=== PATIENT | female | born 1975 | race Caucasian/White ===

== ENCOUNTER 2018-06-01 23:05 | Observation (INO) ==
--- NOTE | 2018-06-01 23:15 | Emergency Department Note ---
Disposition Clinical Impression: Altered mental status, Aphasia, Weakness Disposition: Admitted As Inpatient Condition: Fair Referrals: Cynthia Barnes, LIFT TEAM TECHNICIAN [Primary Care Provider] - Forms: ED Satisfaction Letter Neuro HPI - General Chief Complaint: ED Neuro Symptoms/Deficit Stated Complaint: numbness Time Seen by Provider: 06/01/18 23:08 Source: patient, EMS Mode of arrival: EMS Limitations: no limitations Nursing Notes Reviewed: Yes Vital Signs Reviewed: Yes - History of Present Illness HPI Narrative: Patient is a 42-year-old female with past medical history of hypertension, CHF. She presents today due to complaints of bilateral lower extremity numbness and inability to move legs. Also complains of left sided arm weakness and numbness. She is unsure when these symptoms started. EMS states that the symptoms started within the past few hours but were unable to give a more definite timeframe. Family is not with the patient. Patient denies any other chest pain, shortness of breath, nausea, vomiting, fevers, diarrhea, abdominal pain. Unknown blood thinners. No falls. - Related Data Home Medications: Home Medications Medication Instructions Recorded Confirmed Aspirin [Lo-Dose Aspirin EC] 81 mg PO DAILY 11/09/16 04/25/18 Metoprolol [Lopressor] 25 mg PO DAILY 11/09/16 04/25/18 Montelukast [Singulair] 10 mg PO DAILY 02/13/17 04/25/18 Gabapentin [Neurontin] 600 mg PO TID 04/30/17 04/25/18 ALPRAZolam [Xanax 0.25 MG Tablet] 0.25 mg PO QID 04/02/18 04/25/18 Cyclobenzaprine [Flexeril] 10 mg PO TID 04/02/18 04/25/18 Previous Rx's Medication Instructions Recorded Brompheniramine/Pseudoephed/Dm 5 ml PO Q4-6H PRN #120 syrup 04/02/18 [Bromfed Dm Cough Syrup] Famotidine [Pepcid] 20 mg PO BID #30 tablet 04/25/18 Omeprazole [PriLOSEC] 20 mg PO BIDAC #30 cap 04/25/18 Allergies/Adverse Reactions: Allergies Allergy/AdvReac Type Severity Reaction Status Date / Time ketorolac [From Toradol] Allergy Hives Verified 04/25/18 12:01 Penicillins Allergy Seizure Verified 04/25/18 12:01 naproxen AdvReac Hives Verified 04/25/18 12:01 All systems ED: reviewed and negative except as stated. Constitutional: Denies: fever Cardiovascular: Denies: chest pain, palpitations Respiratory: Denies: cough, dyspnea, wheezes Gastrointestinal: Denies: abdominal pain, nausea, vomiting, diarrhea Neurological: Reports: weakness, numbness. Denies: headache, paresthesias Past Medical History - Past Medical History Attestation: Yes The following information was validated with the patient. Source: patient Medical history: Reports: arthritis, asthma, CHF, hypertension, other Surgical history: Reports: , cholecystectomy, hysterectomy Psychiatric history: Reports: anxiety, depression IRRIGATION FLUME LAYER history: Reports: no IRRIGATION FLUME LAYER history - Social History Smoking Status: Current every day smoker Smokeless Tobacco Status: No Alcohol use: Reports: none Drug use: Reports: none Physical Exam - General Limitations: no limitations General appearance: alert, in no apparent distress - Head Head exam: atraumatic, normocephalic, normal inspection - Eye Eye exam: Present: normal appearance, PERRL, EOMI - ENT ENT exam: normal exam, normal oropharynx, mucous membranes moist - Neck Neck exam: Present: normal inspection, full ROM, trachea midline - Chest Chest inspection: Present: normal inspection, symmetric chest wall rise - Respiratory Respiratory exam: Present: normal lung sounds bilaterally - Cardiovascular Cardiovascular exam: Present: regular rate, normal rhythm, normal heart sounds - Abdominal Exam Abdominal exam: Present: soft, Non-Tender. Absent: tenderness, distention, guarding, rebound, rigidity - Extremities Exam Extremities exam: Present: normal inspection. Absent: tenderness, pedal edema - Neurological Exam Neurological exam: Present: alert, oriented X3, CN II-XII intact, other (see NIH for further detail) - Expanded Neurological Exam Patient oriented to: Present: person, place, time Cranial nerves: EOM function (II, III, IV, ): Normal, facial sensation (V): Normal, facial palsy (VII): Normal, spinal accessory function (XI): Normal, tongue deviation (XII): Normal Motor strength - LUE: 5/5 Motor strength - RUE: 5/5 Motor strength - LLE: 0/5 Motor strength - RLE: 0/5 Sensory exam upper extremity: light touch: Normal Sensory exam lower extremity: light touch: Abnormal Left, Abnormal Right Coma Scale Eye Opening: Spontaneous Coma Scale Motor Response: Obeys Commands Coma Scale Verbal Response: Oriented Coma Scale Total: 15 - Psychiatric Psychiatric exam: Present: normal affect, normal mood - Skin Skin exam: Present: warm, dry, intact, normal color Course Course Narrative: Stroke alert called. We will perform basic blood work, CT the head, chest x- ray. Please see NIH dissection for full details, NIH of 10 to the patient not moving bilateral lower extremities, decreased sensation of bilateral lower extremities and left upper extremity, mild slurring of speech. 23:27 Dr. Ratliff with [facility] on phone - Negative head CT 23:37 [facility] - neurologist on-call stated that since patient's symptoms do not follow focal distribution and head CT is negative, there is also no specific last known well, she did not recommend TPA at this time. She recommended obtaining CTA of the head and neck to assess for any proximal clot. If this is negative, recommended admission and further assessment with MRI/ further CVA workup. 01:36 CTA of the head and neck was negative for any acute arterial abnormality. Chest x-ray shows pulmonary vascular congestion. Troponin negative. EKG showed sinus rhythm with no acute ST changes. Patient reassessed. She is now moving all extremities appropriately, sensation is intact. She still has some mild slurring of words. NIH of 1. Head CT 06/01/18 23:12 IMPRESSION: No acute intracranial abnormality. Findings were discussed with Ang Appiah at 11:28 pm on 06/01/2018. D/ / Belem Singh Cha, MD / Belem Singh Cha, MD Interpreting Provider: Belem Singh Cha, MD Chest X-Ray 06/01/18 23:13 IMPRESSION: Suspected central pulmonary vascular congestion. D/ / Belem Singh Cha, MD / Belem Singh Cha, MD Interpreting Provider: Belem Singh Cha, MD Head CTA 06/02/18 23:36 IMPRESSION: CTA of the head and neck without acute arterial abnormality. Pulmonary apices demonstrate mixed attenuation suggestive of atelectasis or infection. Mildly prominent mediastinal lymph nodes, likely reactive in origin. D/ / Harshil Burnett / Harshil Burnett Interpreting Provider: Harshil Burnett Neck CTA 06/02/18 23:36 IMPRESSION: CTA of the head and neck without acute arterial abnormality. Pulmonary apices demonstrate mixed attenuation suggestive of atelectasis or infection. Mildly prominent mediastinal lymph nodes, likely reactive in origin. D/ / Harshil Burnett / Harshil Burnett Interpreting Provider: Harshil Burnett Vital Signs Temperature 98.0 F 06/01/18 23:10 Pulse Rate 95 06/01/18 23:10 Respiratory Rate 16 06/01/18 23:10 Blood Pressure 154/88 06/01/18 23:10 O2 Sat by Pulse Oximetry 93 06/01/18 23:10 Temperature 98.0 F 06/01/18 23:10 Pulse Rate 85 06/02/18 01:34 Respiratory Rate 16 06/02/18 01:34 Blood Pressure 142/80 06/02/18 01:34 O2 Sat by Pulse Oximetry 96 06/02/18 01:34 Oxygen Delivery Oxygen Delivery Room Air Neuro Symptoms/Deficit - MDM Narrative Medical decision making narrative: Stroke alert called. We will perform basic blood work, CT the head, chest x- ray. Please see NIH dissection for full details, NIH of 10 to the patient not moving bilateral lower extremities, decreased sensation of bilateral lower extremities and left upper extremity, mild slurring of speech. 23:27 Dr. Ratliff with [facility] on phone - Negative head CT 23:37 [facility] - neurologist on-call stated that since patient's symptoms do not follow focal distribution and head CT is negative, there is also no specific last known well, she did not recommend TPA at this time. She recommended obtaining CTA of the head and neck to assess for any proximal clot. If this is negative, recommended admission and further assessment with MRI/ further CVA workup. 01:36 CTA of the head and neck was negative for any acute arterial abnormality. Chest x-ray shows pulmonary vascular congestion. Troponin negative. EKG showed sinus rhythm with no acute ST changes. Patient reassessed. She is now moving all extremities appropriately, sensation is intact. She still has some mild slurring of words. NIH of 1. - Medical Records Medical records reviewed: Yes I reviewed the patient's medical records. - Lab Data Lab results reviewed: Yes I reviewed the patient's lab results. Result diagrams: 06/01/18 23:24 06/01/18 23:24 Lab Results 06/01/18 06/01/18 06/01/18 Range/Units 23:24 23:24 23:24 WBC 13.0 H (4.3-11.1) K/mcL RBC 4.98 H (3.82-4.97) M/mcL Hgb 15.4 (11.5-15.4) g/dL Hct 44.9 (35.3-44.9) % MCV 90.2 (83.0-100.0) fL MCH 30.9 (28.0-33.3) pg MCHC 34.3 (31.6-35.5) g/dL RDW 13.0 (11.5-14.5) % Plt Count 298 (140-400) K/mcL MPV 10.4 (9.4-12.4) fL Immature Gran % 0.3 (0-4) % Seg Neutrophils % 65.9 % Lymphocytes % 26.9 % Monocytes % 5.5 % Eosinophils % 1.1 % Basophils % 0.3 % Neutrophils # 8.5 (1.6-8.9) K/mcL Lymphocytes # 3.5 (0.6-4.6) K/mcL Monocytes # 0.7 (0.0-1.3) K/mcL Eosinophils # 0.1 (0.0-0.6) K/mcL Basophils # 0.0 (0.0-0.2) K/mcL PT 11.2 (9.4-12.1) Seconds INR 1.0 APTT 37.8 H (26.0-36.0) Seconds Sodium 136 (136-145) mEq/L Potassium 3.5 (3.5-5.1) mEq/L Chloride 113 H (98-107) mEq/L Carbon Dioxide 22 L (23-29) mEq/L BUN 9 (6-20) mg/dL Creatinine 0.67 (0.60-1.20) mg/dL Est GFR ( Amer) > 60 (> 60) Est GFR (Non-Af Amer) > 60 (> 60) BUN/Creatinine Ratio 13 (6-26) Glucose 107 H (70-105) mg/dL Calculated Osmolality 281 (280-300) Calcium 9.7 (8.6-10.3) mg/dL Troponin I < 0.03 (< 0.04) ng/mL - Radiology Data Radiology results reviewed: Yes I reviewed the patient's radiology results. - EKG Data EKG attestation: Yes I reviewed and interpreted this EKG. EKG results narrative: 06/01/2018 at 23:28. Normal sinus rhythm. Rate 90. MT 176. QRS 77. QTC 496. Normal axis. No acute ST elevation or depression. NIH Stroke Scale - Level of Consciousness LOC: Alert - LOC Questions LOC Questions: Answers both correctly - LOC Commands LOC Commands: Performs both correctly - Best Gaze Best Gaze: Normal - Visual Visual: No visual loss - Facial Palsy Facial Palsy: Normal - Motor Arms Motor Arm-Left: No drift for 10 seconds Motor Arm-Right: No drift for 10 seconds - Motor Legs Motor Leg-Left: No movement Motor Leg-Right: No movement - Limb Ataxia Limb Ataxia: Absent of affected limb too weak to perform exam - Sensory Sensory: Mild to moderate loss, "not as sharp" - Best Language Best Language: No aphasia - Dysarthria Dysarthria: Mild, slurs some words - Extinction and Inattention Extinction and Inattention: Normal - NIHSS Total Score NIHSS Total Score: 10 TPA Checklist - LKW: 3-4.5 hrs Add. Warnings/Precautions Patient/family understanding: The patient/family members have been counseled and understood the risk, benefit , and alternatives of treatment.
[2018-06-01 23:32] LABS: Basophils % 0.3 %; Eosinophils # 0.1 K/mcL (0.0-0.6); Eosinophils % 1.1 %; Hematocrit 44.9 % (35.3-44.9); Hemoglobin 15.4 g/dL (11.5-15.4); Immature Granulocytes % 0.3 % (0-4); Lymphocytes # 3.5 K/mcL (0.6-4.6); Lymphocytes % 26.9 %; Mean Corpuscular HGB Conc 34.3 g/dL (31.6-35.5); Mean Corpuscular Hemoglobin 30.9 pg (28.0-33.3); Mean Corpuscular Volume 90.2 fL (83.0-100.0); Mean Platelet Volume 10.4 fL (9.4-12.4); Monocytes # 0.7 K/mcL (0.0-1.3); Monocytes % 5.5 %; Neutrophils # 8.5 K/mcL (1.6-8.9); Platelet Count 298 K/mcL (140-400); Red Blood Count 4.98 M/mcL (3.82-4.97); Segmented Neutrophils % 65.9 %
[2018-06-01 23:36] LABS: Prothrombin Time 11.2 Seconds (9.4-12.1)
[2018-06-01] MEDS ORDERED: Isovue-370 500 ML INFUS..BTL IV ONE (23:36)
[2018-06-01 23:39] LABS: Activated Partial Thrombo Time 37.8 Seconds (26.0-36.0)
[2018-06-02 00:04] LABS: BUN/Creatinine Ratio 13 (6-26); Blood Urea Nitrogen 9 mg/dL (6-20); Calcium 9.7 mg/dL (8.6-10.3); Carbon Dioxide 22 mEq/L (23-29); Chloride 113 mEq/L (98-107); Glucose 107 mg/dL (70-105); Osmolality,Calculated 281 (280-300); Potassium 3.5 mEq/L (3.5-5.1); Sodium 136 mEq/L (136-145); eGFR For Non-African Americans > 60 (> 60)
[2018-06-02 00:06] LABS: Troponin I < 0.03 ng/mL (< 0.04)
--- NOTE | 2018-06-02 01:26 | Emergency Department Note ---
Disposition Clinical Impression: Altered mental status, Aphasia, Weakness Disposition: Admitted As Inpatient Condition: Fair Referrals: Cynthia Barnes, DAIRY PRODUCTS MAKER [Primary Care Provider] - Forms: ED Satisfaction Letter Neuro HPI - General Chief Complaint: ED Neuro Symptoms/Deficit Stated Complaint: numbness Time Seen by Provider: 06/01/18 23:08 Source: patient, EMS Mode of arrival: EMS Limitations: no limitations Nursing Notes Reviewed: Yes Vital Signs Reviewed: Yes - Related Data Home Medications: Home Medications Medication Instructions Recorded Confirmed Aspirin [Lo-Dose Aspirin EC] 81 mg PO DAILY 11/09/16 04/25/18 Metoprolol [Lopressor] 25 mg PO DAILY 11/09/16 04/25/18 Montelukast [Singulair] 10 mg PO DAILY 02/13/17 04/25/18 Gabapentin [Neurontin] 600 mg PO TID 04/30/17 04/25/18 ALPRAZolam [Xanax 0.25 MG Tablet] 0.25 mg PO QID 04/02/18 04/25/18 Cyclobenzaprine [Flexeril] 10 mg PO TID 04/02/18 04/25/18 Previous Rx's Medication Instructions Recorded Brompheniramine/Pseudoephed/Dm 5 ml PO Q4-6H PRN #120 syrup 04/02/18 [Bromfed Dm Cough Syrup] Famotidine [Pepcid] 20 mg PO BID #30 tablet 04/25/18 Omeprazole [PriLOSEC] 20 mg PO BIDAC #30 cap 04/25/18 Allergies/Adverse Reactions: Allergies Allergy/AdvReac Type Severity Reaction Status Date / Time ketorolac [From Toradol] Allergy Hives Verified 04/25/18 12:01 Penicillins Allergy Seizure Verified 04/25/18 12:01 naproxen AdvReac Hives Verified 04/25/18 12:01 Constitutional: Denies: fever Cardiovascular: Denies: chest pain, palpitations Respiratory: Denies: cough, dyspnea, wheezes Gastrointestinal: Denies: abdominal pain, nausea, vomiting, diarrhea Neurological: Reports: weakness, numbness. Denies: headache, paresthesias Past Medical History - Past Medical History Medical history: Reports: arthritis, asthma, CHF, hypertension, other Surgical history: Reports: , cholecystectomy, hysterectomy Psychiatric history: Reports: anxiety, depression RESEARCH DEVELOPMENT MANAGER history: Reports: no RESEARCH DEVELOPMENT MANAGER history - Social History Smoking Status: Current every day smoker Smokeless Tobacco Status: No Alcohol use: Reports: none Drug use: Reports: none Physical Exam - General Limitations: no limitations General appearance: alert, in no apparent distress Course Vital Signs Temperature 98.0 F 06/01/18 23:10 Pulse Rate 95 06/01/18 23:10 Respiratory Rate 16 06/01/18 23:10 Blood Pressure 154/88 06/01/18 23:10 O2 Sat by Pulse Oximetry 93 06/01/18 23:10 Temperature 98.0 F 06/01/18 23:10 Pulse Rate 87 06/02/18 00:15 Respiratory Rate 16 06/02/18 00:15 Blood Pressure 147/86 06/02/18 00:15 O2 Sat by Pulse Oximetry 97 06/02/18 00:15 Oxygen Delivery Oxygen Delivery Room Air Neuro Symptoms/Deficit - Lab Data Result diagrams: 06/01/18 23:24 06/01/18 23:24 Lab Results 06/01/18 06/01/18 06/01/18 Range/Units 23:24 23:24 23:24 WBC 13.0 H (4.3-11.1) K/mcL RBC 4.98 H (3.82-4.97) M/mcL Hgb 15.4 (11.5-15.4) g/dL Hct 44.9 (35.3-44.9) % MCV 90.2 (83.0-100.0) fL MCH 30.9 (28.0-33.3) pg MCHC 34.3 (31.6-35.5) g/dL RDW 13.0 (11.5-14.5) % Plt Count 298 (140-400) K/mcL MPV 10.4 (9.4-12.4) fL Immature Gran % 0.3 (0-4) % Seg Neutrophils % 65.9 % Lymphocytes % 26.9 % Monocytes % 5.5 % Eosinophils % 1.1 % Basophils % 0.3 % Neutrophils # 8.5 (1.6-8.9) K/mcL Lymphocytes # 3.5 (0.6-4.6) K/mcL Monocytes # 0.7 (0.0-1.3) K/mcL Eosinophils # 0.1 (0.0-0.6) K/mcL Basophils # 0.0 (0.0-0.2) K/mcL PT 11.2 (9.4-12.1) Seconds INR 1.0 APTT 37.8 H (26.0-36.0) Seconds Sodium 136 (136-145) mEq/L Potassium 3.5 (3.5-5.1) mEq/L Chloride 113 H (98-107) mEq/L Carbon Dioxide 22 L (23-29) mEq/L BUN 9 (6-20) mg/dL Creatinine 0.67 (0.60-1.20) mg/dL Est GFR ( Amer) > 60 (> 60) Est GFR (Non-Af Amer) > 60 (> 60) BUN/Creatinine Ratio 13 (6-26) Glucose 107 H (70-105) mg/dL Calculated Osmolality 281 (280-300) Calcium 9.7 (8.6-10.3) mg/dL Troponin I < 0.03 (< 0.04) ng/mL TPA Checklist - LKW: 3-4.5 hrs Add. Warnings/Precautions Patient/family understanding: The patient/family members have been counseled and understood the risk, benefit , and alternatives of treatment. Attestation Statement - Attestation Attestation: I, Quan Zamudio, examined this patient and my medical decision-making was reviewed with the ULTRASOUND TECHNICIAN/PA/Advanced Practice Nurse/Resident Physician. I agree with the documented findings, disposition and treatment plan as described except to the extent set forth below. 42-year-old female presents emergency Department with concerns of acute altered mental status. Patient is a poor historian and is unable to give a good history regarding the onset of her symptoms. On her initial evaluation she had slow speech but was not necessarily aphasic or dysarthric. Patient complained of weakness to the left upper extremity and bilateral lower extremities and initially refused to move the extremities however once it was raised she was able to keep her arm and legs elevated. CT did not show evidence of acute fracture or intracranial hemorrhage. Patient was unable to give us a time of last known well. Patient was not a candidate for TPA. She will be admitted to the hospitalist for further care and evaluation. Upon reevaluation she does state that she had "a very bad day" and states that she was driving when she had onset of her symptoms, pulled over to the side of the road to wait for help.
[2018-06-02] MEDS ORDERED: Aspirin 325 MG TABLET PO ONE (01:41)
[2018-06-02] MEDS ORDERED: Ondansetron 4 MG/2 ML VIAL IVP PRN (04:39)
[2018-06-02] MEDS ORDERED: Naloxone 0.4 MG/ML INJ IVP PRN (04:39)
[2018-06-02] MEDS ORDERED: Metoclopramide 10 MG/2 ML VIAL IVP PRN (04:41)
--- NOTE | 2018-06-02 04:58 | Internal Med History&Physical ---
Date of Encounter: 06/02/18 Time of Encounter: 04:52 Internal Medicine - H&P: HPI Chief complaint: weakness, confusion, numbness Admitted From: Emergency Dept Plans for Post Hospital Care: Home History of present illness: Ms. Parry is a 42 year old female with history of arthritis, asthma, CHF, hypertension, anxiety, depression, asthma who presents to emergency room with complaint of left arm/bilateral lower extremity weakness, numbness, tingling. She also states she has been confused. She is unable to remember her last known well but states that it was probably around 7 PM this evening. She states her symptoms were sudden onset however they are now relieved. She has never experienced this in the past. She does state she has a stressful couple days this might be contributing to her symptoms. She also states that she did not take her medications this morning including Xanax. She states she has also had a feeling a pinching her chest wall but this was not relieved as well. She denies any symptoms of fevers, chills, nausea, vomiting, change in bowel movements, shortness of breath. Currently during time of interview, she does not admit to any symptoms of weakness, numbness, tingling. Her only complaint at this time as a migraine headache. In the emergency department, stroke alert was called and she was stressed to urgent head CT which was negative for acute pathology. It was recommended that she also obtained a CT head and neck at that time and those results were also negative for acute infarct or stenotic lesion. Chest x-ray shows suspected pulmonary vascular congestion otherwise within normal limits. Vital signs on presentation significant for heart rate of 95, blood pressure 144/88 and she was saturating 93% on 2 L. Lab results significant for WBC of 13.0, potassium 3.5, otherwise within normal limits. Past medical history as above Past surgical history includes Social history includes current one pack per day smoker, denies drug use, denies alcohol abuse but does state she used to be a heavy drinker. Past Med Surg Social Fam HX - Past Medical History Medical history: arthritis, asthma, CHF, hypertension, other Additional medical history: Irregular Heartbeat Psychiatric history: anxiety, depression - Past Surgical History Surgical History: , cholecystectomy, hysterectomy - Social History Smoking Status: Current every day smoker Packs per day: 1 Smokeless Tobacco Status: No Alcohol use: none Drug use: none - Family History Mother Hx Family Cardiac Disorders: Yes (SC) Hx Family Respiratory Disorders: Yes (COPD) Hx Family Cancer: No Hx Family GI Disorders: No Hx Family Genitourinary Disorders: No Hx Family Endocrine Disorder: Yes (Thyroid, DM) Hx Family Musculoskeletal Disorders: No Hx Family Neuromuscular Disorders: No Hx Family Neurologic Disorders: No Hx Family HEENT Disorders: No Hx Family Autoimmune Disorders: No Hx Family Reproductive Disorders: No Hx Family Psychosocial Disorders: No Hx Family Medical Disorders: No Father Hx Family Cardiac Disorders: Yes (SC) Hx Family Respiratory Disorders: No Hx Family Cancer: Yes (Bone) Hx Family GI Disorders: No Hx Family Genitourinary Disorders: No Hx Family Endocrine Disorder: No Hx Family Musculoskeletal Disorders: No Hx Family Neuromuscular Disorders: No Hx Family Neurologic Disorders: No Hx Family HEENT Disorders: No Hx Family Autoimmune Disorders: No Hx Family Reproductive Disorders: No Hx Family Psychosocial Disorders: No Hx Family Medical Disorders: No Internal Medicine - H&P: Meds Aspirin [Lo-Dose Aspirin EC] 81 mg PO DAILY 11/09/16 [History] Metoprolol [Lopressor] 25 mg PO DAILY 11/09/16 [History] Montelukast [Singulair] 10 mg PO DAILY 02/13/17 [History] Gabapentin [Neurontin] 600 mg PO TID 04/30/17 [History] ALPRAZolam [Xanax 0.25 MG Tablet] 0.25 mg PO QID 04/02/18 [History] Cyclobenzaprine [Flexeril] 10 mg PO TID 04/02/18 [History] Famotidine [Pepcid] 20 mg PO BID #30 tablet 04/25/18 [Rx] Omeprazole [PriLOSEC] 20 mg PO BIDAC #30 cap 04/25/18 [Rx] 3 Allergy/AdvReac Type Severity Reaction Status Date / Time ketorolac [From Toradol] Allergy Hives Verified 04/25/18 12:01 Penicillins Allergy Seizure Verified 04/25/18 12:01 naproxen AdvReac Hives Verified 04/25/18 12:01 All Systems PM: A 10-system review of systems was performed and is negative for pertinent findings except as documented above in the HPI. - Constitutional Constitutional: weakness, no chills, no fatigue, no fever(s), no lethargy - EENT Eyes: spots in vision, no blurry vision - Cardiovascular Cardiovascular ROS IM: no chest pain, no dyspnea, no dyspnea on exertion, no edema, no orthopnea, no syncope - Respiratory Respiratory: no cough, no dyspnea, no dyspnea on exertion, no wheezing - Gastrointestinal Gastrointestinal: no abdominal pain, no constipation, no diarrhea, no hematochezia, no loose stools, no melena, no nausea, no vomiting - Genitourinary Genitourinary: no dysuria - Integumentary Integumentary IM: no rash - Neurological Neurological ROS: confusion, focal weakness, headache(s), numbness, tingling, weakness, no abnormal gait, no abnormal speech, no behavioral changes, no dizziness - Constitutional Vitals: Temp Pulse Resp BP Pulse Ox 98 F 82 16 125/81 96 06/02/18 04:15 06/02/18 04:15 06/02/18 04:15 06/02/18 04:15 06/02/18 04:15 Exam: Gen.: Vitals noted. No acute distress. AAOx3. Mildly anxious appearing HEENT: PERRL/EOMI, oropharynx clear, Normocephalic, atraumatic, MMM Cardiac: RRR, no murmur, +S1/S2 tachycardic Pulmonary: CTA bilaterally, no wheezes, rales or rhonchi, equal chest expansion MSK: ROM intact, no joint swelling noted. Muscle strength 5/5 in all extremities, except for left lower extremity is 4/5 which she states is chronic. Extremities: no BLE edema, nontender calf, no cyanosis or clubbing Neuro: A&Ox3, moves all extremities, no focal deficits, Sensation intact grossly. Cranial nerves II through XII intact Psych: Appropriate mood and behavior Internal Med - H&P Results - Labs CBC & Chem 7: 06/01/18 23:24 06/01/18 23:24 - Impressions ITS Impressions Head CTA 06/02/18 23:36 IMPRESSION: CTA of the head and neck without acute arterial abnormality. Pulmonary apices demonstrate mixed attenuation suggestive of atelectasis or infection. Mildly prominent mediastinal lymph nodes, likely reactive in origin. D/ / Harshil Burnett / Harshil Burnett Interpreting Provider: Harshil Brunett Neck CTA 06/02/18 23:36 IMPRESSION: CTA of the head and neck without acute arterial abnormality. Pulmonary apices demonstrate mixed attenuation suggestive of atelectasis or infection. Mildly prominent mediastinal lymph nodes, likely reactive in origin. D/ / Harshil Burnett / Harshil Burnett Interpreting Provider: Harshil Burnett - Assessment and plan (1) Focal neurological deficit Current Visit: Yes Status: Acute Assessment and plan: - Currently resolved back to baseline - reported left arm, bilateral LE numbness and tingling and weakness - Stroke alert called in ED, telemedicine to [facility] with negative CT and no TPA - Patient is home home ASA for CAD - Also received CTA of head and neck per [facility] recommendation. No evidence of stroke of stenotic vascular lesion. - Also admits to confusion and memory loss - Non classical neurologic pattern, suspect that there may be a psychological component to her symptoms Plan - Will rule out TIA with MRI in AM - Obtain B12, TSH, homocystine as alternatives to tingling - Restart psych medications - Consider psych consult vs neuro consult pending MRI findings. (2) Anxiety Current Visit: Yes Status: Chronic Assessment and plan: - Known history of anxiety that is moderately controlled with xanax. Patient admits to increased stressors recently and did not take her medications today - Possible psychosomatic component to her symptoms - She does appear anxious on clinical exam today - Will continue home xanax and further workup as above (3) HTN (hypertension) Current Visit: Yes Status: Chronic Assessment and plan: - mildly elevated at 154/88 - Patient states she has not taken her medications today - Will continue home meds. Qualifiers: Hypertension type: essential hypertension Qualified Code(s): I10 - Essential (primary) hypertension (4) (HFpEF) heart failure with preserved ejection fraction Current Visit: Yes Status: Chronic Assessment and plan: not in acute exacerbation although CXR suggests possible pulmunary edema. Not SOB, tolerating room air. No swelling. (5) Asthma Current Visit: Yes Status: Chronic Qualifiers: Asthma severity: unspecified severity Asthma persistence: unspecified Asthma complication type: uncomplicated Qualified Code(s): J45.909 - Unspecified asthma, uncomplicated (6) Altered mental status Current Visit: Yes Status: Acute Assessment and plan: as above. Qualifiers: Altered mental status type: disorientation Qualified Code(s): R41.0 - Disorientation, unspecified (7) Aphasia Current Visit: Yes Status: Resolved Assessment and plan: As documented in ED note, resolved at time of admission (8) Weakness Current Visit: Yes Status: Acute Assessment and plan: as above (9) DVT prophylaxis Current Visit: Yes Status: Acute Assessment and plan: - Heparin 5000 units q12 hours - Time Spent With Patient Total time spent is greater than 50% in coordination of care (as documented) at patient's floor/unit and/or counseling patient:
[2018-06-02 05:53] LABS: Chol/HDL Ratio 3.9 (0-4.9); Magnesium 2.4 mg/dL (1.6-2.6)
[2018-06-02] MEDS ORDERED: *HR* Heparin 5,000 UNIT/ML VIAL SQ SCH (06:00)
[2018-06-02 06:12] LABS: Thyroid Stimulating Hormone 1.041 mcIU/mL (0.340-5.600)
[2018-06-02] MEDS ORDERED: Famotidine 20 MG TABLET PO SCH (07:30)
[2018-06-02 08:10] VITALS: BP 115/77
[2018-06-02] MEDS ORDERED: Gabapentin 300 MG CAPSULE PO SCH (09:00)
[2018-06-02] MEDS ORDERED: ALPRAZolam 0.25 MG TABLET PO SCH (09:00)
[2018-06-02] MEDS ORDERED: Aspirin Enteric Coated 81 MG Tablet PO SCH (09:00)
[2018-06-02] MEDS ORDERED: Nicotine 7 MG PATCH.TD24 TD SCH (09:00)
--- NOTE | 2018-06-02 09:54 | Discharge Summary ---
- NOTES TO OUTPATIENT PROVIDER Notes to Outpatient Provider: f/u with PCP within 1 month. Orders not resulted at time of discharge: Pending orders 06/02/18 05:10 Homocysteine Routine Date of Encounter: 06/02/18 Time of Encounter: 09:52 - Discharge Diagnosis (1) Altered mental status Priority: Primary Status: Acute Qualifiers: Altered mental status type: disorientation Qualified Code(s): R41.0 - Disorientation, unspecified (2) Aphasia Priority: Primary Status: Resolved (3) Weakness Priority: Primary Status: Resolved (4) Focal neurological deficit Priority: Primary Status: Resolved (5) DVT prophylaxis Priority: Primary Status: Acute (6) Anxiety Priority: Secondary Status: Chronic (7) HTN (hypertension) Priority: Secondary Status: Chronic Qualifiers: Hypertension type: essential hypertension Qualified Code(s): I10 - Essential (primary) hypertension (8) (HFpEF) heart failure with preserved ejection fraction Priority: Secondary Status: Chronic (9) Asthma Priority: Secondary Status: Chronic Qualifiers: Asthma severity: unspecified severity Asthma persistence: unspecified Asthma complication type: uncomplicated Qualified Code(s): J45.909 - Unspecified asthma, uncomplicated Hospital course: Ms. Parry is a 42 year old female with history of arthritis, asthma, CHF, hypertension, anxiety, depression, asthma who presents to emergency room with complaint of left arm/bilateral lower extremity weakness, numbness, tingling. She also states she has been confused. She is unable to remember her last known well but states that it was probably around 7 PM this evening. She states her symptoms were sudden onset however they are now relieved. She has never experienced this in the past. She does state she has a stressful couple days this might be contributing to her symptoms. She also states that she did not take her medications this morning including Xanax. She states she has also had a feeling a pinching her chest wall but this was not relieved as well. She denies any symptoms of fevers, chills, nausea, vomiting, change in bowel movements, shortness of breath. In the emergency department, stroke alert was called and she was stressed to urgent head CT which was negative for acute pathology. It was recommended that she also obtained a CT head and neck at that time and those results were also negative for acute infarct or stenotic lesion. Chest x-ray shows suspected pulmonary vascular congestion otherwise within normal limits. Vital signs on presentation significant for heart rate of 95, blood pressure 144/88 and she was saturating 93% on 2 L. Pt neurological symptoms resolved after arrived to floor. MRI brain has no acute stroke. Pt currently stable and neurological deficit free. She will be discharged home today and f/u with PCP within a month. Time spent discussing smoking cessation with patient: more than 10 minutes - Time Spent with Patient Total time spent providing and/or coordinating discharge services: Greater than 30 minutes - Discharge Medications Home Medications: Aspirin [Lo-Dose Aspirin EC] 81 mg PO DAILY 11/09/16 [History] Metoprolol [Lopressor] 25 mg PO DAILY 11/09/16 [History] Montelukast [Singulair] 10 mg PO DAILY 02/13/17 [History] Gabapentin [Neurontin] 600 mg PO TID 04/30/17 [History] ALPRAZolam [Xanax 0.25 MG Tablet] 0.25 mg PO QID 04/02/18 [History] Cyclobenzaprine [Flexeril] 10 mg PO TID 04/02/18 [History] Famotidine [Pepcid] 20 mg PO BID #30 tablet 04/25/18 [Rx] Omeprazole [PriLOSEC] 20 mg PO BIDAC #30 cap 04/25/18 [Rx] Allergies/Adverse Reactions: 3 Allergy/AdvReac Type Severity Reaction Status Date / Time ketorolac [From Toradol] Allergy Hives Verified 04/25/18 12:01 Penicillins Allergy Seizure Verified 04/25/18 12:01 naproxen AdvReac Hives Verified 04/25/18 12:01 Date of admission: 06/02/18 02:56 Primary care physician: Cynthia Barnes CNP Anticipated date of discharge: 06/02/18 - Constitutional Vitals: Temp Pulse Resp BP Pulse Ox 97.9 F 82 17 115/77 94 06/02/18 08:08 06/02/18 08:08 06/02/18 08:08 06/02/18 08:08 06/02/18 08:08 General appearance: Present: A&O X 3 Exam: PHYSICAL EXAMINATION: GENERAL APPEARANCE: The patient is alert, oriented and in no acute distress. HEENT: Head is normocephalic. The sinuses are nontender. Pupils are equal and reactive. The nares are patent. Oropharynx clear without lesions. NECK: Supple without lymphadenopathy. HEART: Regular rate and rhythm. LUNGS: No crackles or wheezes are heard. ABDOMEN: Soft, nontender, nondistended with good bowel sounds heard. Inguinal area is normal. EXTREMITIES: Without cyanosis, clubbing or edema. NEUROLOGICAL: Gross nonfocal. SKIN: Warm and dry without any rash. - Patient Status Disposition: Home, Self-Care Condition: Fair Functional capacity at discharge: independent ambulation Overall status at discharge: patient is back to baseline - Discharge Instructions Follow Up With: Cynthia Barnes, BEZEL CUTTER [Primary Care Provider] - - Diet and Activity Activity: increase activity as tolerated Diet: regular diet - VTE Documentation of Mechanical Device: Intermittent pneumatic compression device
== END 2018-06-02 12:54 | disposition home or self-care (01) ==
LOC: 3BNU 23:05 → EMEROO 23:05 → 3BNU 06-02 03:16
PROVIDERS: ADMIT Family Medicine; ATTEND Family Medicine

== ENCOUNTER 2019-10-12 11:49 | Inpatient (IN) ==
[2019-10-12] MEDS ORDERED: Ipratropium/Albuterol Neb 3 ML IH ONE (12:06)
[2019-10-12 12:33] LABS: Basophils % 0.4 %; Eosinophils # 0.2 K/mcL (0.0-0.6); Eosinophils % 1.4 %; Hematocrit 54.3 % (35.3-44.9); Hemoglobin 18.6 g/dL (11.5-15.4); Immature Granulocytes % 0.4 % (0-4); Lymphocytes % 18.8 %; Mean Corpuscular HGB Conc 34.3 g/dL (31.6-35.5); Mean Corpuscular Hemoglobin 30.8 pg (28.0-33.3); Mean Corpuscular Volume 89.9 fL (83.0-100.0); Mean Platelet Volume 10.6 fL (9.4-12.4); Monocytes # 0.8 K/mcL (0.0-1.3); Neutrophils # 7.5 K/mcL (1.6-8.9); Platelet Count 255 K/mcL (140-400); Red Blood Count 6.04 M/mcL (3.82-4.97); Red Cell Distribution Width 13.2 % (11.5-14.5); White Blood Count 10.5 K/mcL (4.3-11.1)
[2019-10-12 12:35] LABS: Prothrombin Time 11.2 Seconds (9.4-12.1)
[2019-10-12 12:37] LABS: Activated Partial Thrombo Time 38.4 Seconds (26.0-36.0)
[2019-10-12 12:50] LABS: BUN/Creatinine Ratio 12 (6-26); Blood Urea Nitrogen 10 mg/dL (6-20); Calcium 10.1 mg/dL (8.6-10.3); Carbon Dioxide 22 mEq/L (23-29); Chloride 107 mEq/L (98-107); Glucose 85 mg/dL (70-105); Osmolality,Calculated 282 (280-300); Potassium 3.8 mEq/L (3.5-5.1); Sodium 137 mEq/L (136-145); Troponin I < 0.03 ng/mL (< 0.04); eGFR For African Americans > 60 (> 60); eGFR For Non-African Americans > 60 (> 60)
[2019-10-12] MEDS ORDERED: 0.9 % Sodium Chloride 1,000 ML IV ONE (13:18)
[2019-10-12] MEDS ORDERED: Morphine Sulfate 2 MG/ML SYRINGE IVP ONE (14:23)
[2019-10-12] MEDS ORDERED: Naloxone 0.4 MG/ML INJ IVP PRN (15:14)
[2019-10-12] MEDS: Gabapentin 100 MG CAPSULE PO SCH ×2 (17:46→22:53)
[2019-10-12] MEDS: ALPRAZolam 0.5 MG TABLET PO SCH (23:35)
[2019-10-12 23:36] LABS: Influenza A PCR Negative (Negative); Influenza B PCR Negative (Negative); Resp. Syncytial Virus PCR Positive (Negative)
[2019-10-13] MEDS: ALPRAZolam 0.5 MG TABLET PO SCH ×2 (00:14→09:50)
[2019-10-13 01:34] LABS: Basophils # 0.1 K/mcL (0.0-0.2); Basophils % 0.6 %; Eosinophils # 0.2 K/mcL (0.0-0.6); Eosinophils % 2.9 %; Hematocrit 44.2 % (35.3-44.9); Immature Granulocytes % 0.4 % (0-4); Lymphocytes # 2.4 K/mcL (0.6-4.6); Lymphocytes % 28.3 %; Mean Corpuscular HGB Conc 33.9 g/dL (31.6-35.5); Mean Corpuscular Hemoglobin 30.3 pg (28.0-33.3); Mean Corpuscular Volume 89.3 fL (83.0-100.0); Mean Platelet Volume 11.1 fL (9.4-12.4); Monocytes # 0.9 K/mcL (0.0-1.3); Monocytes % 10.6 %; Neutrophils # 4.8 K/mcL (1.6-8.9); Platelet Count 241 K/mcL (140-400); Red Blood Count 4.95 M/mcL (3.82-4.97); Red Cell Distribution Width 13.2 % (11.5-14.5); Segmented Neutrophils % 57.2 %; White Blood Count 8.3 K/mcL (4.3-11.1)
[2019-10-13] MEDS ORDERED: Acetaminophen IV 1,000 MG/100 ML INFUS..BTL IVPB ONE ×2 (01:34→16:00)
[2019-10-13 01:49] LABS: BUN/Creatinine Ratio 13 (6-26); Blood Urea Nitrogen 9 mg/dL (6-20); Calcium 8.8 mg/dL (8.6-10.3); Carbon Dioxide 23 mEq/L (23-29); Chloride 108 mEq/L (98-107); Glucose 110 mg/dL (70-105); Magnesium 2.2 mg/dL (1.6-2.6); Osmolality,Calculated 285 (280-300); Phosphorous 4.2 mg/dL (2.7-4.5); Potassium 3.8 mEq/L (3.5-5.1); Sodium 138 mEq/L (136-145); eGFR For African Americans > 60 (> 60); eGFR For Non-African Americans > 60 (> 60)
[2019-10-13] MEDS ORDERED: Regadenoson 0.4 MG/5 ML SYRINGE IVP ONE (06:30)
[2019-10-13] MEDS: Aspirin Enteric Coated 81 MG Tablet PO SCH (09:50)
[2019-10-13] MEDS: Gabapentin 100 MG CAPSULE PO SCH ×4 (09:50→20:23)
[2019-10-13] MEDS: Loratadine 10 MG TABLET PO SCH (09:50)
[2019-10-14] MEDS: ALPRAZolam 0.5 MG TABLET PO SCH ×3 (00:21→21:41)
[2019-10-14] MEDS ORDERED: Acetaminophen IV 1,000 MG/100 ML INFUS..BTL IVPB ONE ×2 (00:27→23:53)
[2019-10-14 04:32] LABS: Basophils % 0.4 %; Eosinophils # 0.2 K/mcL (0.0-0.6); Eosinophils % 2.4 %; Hemoglobin 13.9 g/dL (11.5-15.4); Immature Granulocytes % 0.3 % (0-4); Lymphocytes # 2.8 K/mcL (0.6-4.6); Lymphocytes % 38.9 %; Mean Corpuscular HGB Conc 33.1 g/dL (31.6-35.5); Mean Corpuscular Hemoglobin 30.2 pg (28.0-33.3); Mean Corpuscular Volume 91.3 fL (83.0-100.0); Mean Platelet Volume 10.9 fL (9.4-12.4); Monocytes # 0.5 K/mcL (0.0-1.3); Monocytes % 7.4 %; Neutrophils # 3.6 K/mcL (1.6-8.9); Platelet Count 228 K/mcL (140-400); Segmented Neutrophils % 50.6 %; White Blood Count 7.1 K/mcL (4.3-11.1)
[2019-10-14 04:46] LABS: BUN/Creatinine Ratio 11 (6-26); Blood Urea Nitrogen 8 mg/dL (6-20); Calcium 8.5 mg/dL (8.6-10.3); Carbon Dioxide 22 mEq/L (23-29); Chloride 105 mEq/L (98-107); Glucose 194 mg/dL (70-105); Osmolality,Calculated 286 (280-300); Potassium 3.4 mEq/L (3.5-5.1); Sodium 136 mEq/L (136-145); eGFR For African Americans > 60 (> 60); eGFR For Non-African Americans > 60 (> 60)
[2019-10-14] MEDS ORDERED: 0.9 % Sodium Chloride 1,000 ML IVC SCH (09:45)
[2019-10-14] MEDS ORDERED: 0.9 % Sodium Chloride 500 ML IVC ONE (09:45)
[2019-10-14] MEDS: Loratadine 10 MG TABLET PO SCH (09:51)
[2019-10-14] MEDS: Aspirin Enteric Coated 81 MG Tablet PO SCH (09:51)
[2019-10-14] MEDS: Gabapentin 100 MG CAPSULE PO SCH ×4 (09:51→21:41)
[2019-10-14] MEDS: Potassium Chloride Elixir 20 MEQ/15 ML UDC PO SCH ×2 (10:05→13:14)
[2019-10-14] MEDS: 0.9 % Sodium Chloride 1,000 ML IVC SCH ×4 (10:06→23:38)
[2019-10-14] MEDS ORDERED: 0.9 % Sodium Chloride 1,000 ML ONE ×2 (10:39→11:57)
[2019-10-14] MEDS ORDERED: Heparin 1,000 UNITS/500 mL 500 ML ONE (10:39)
[2019-10-14] MEDS ORDERED: Nitroglycerin 1,000 MCG/10 ML VIAL IV ONE (10:39)
[2019-10-14] MEDS ORDERED: *HR* Heparin 10,000 UNIT/10 ML VIAL ONE (10:39)
[2019-10-14] MEDS ORDERED: ISOVUE-370 200 ML INFUS..BTL ONE ×2 (10:39→12:13)
[2019-10-14] MEDS: Albuterol 2.5 MG/3 ML NEBULIZER IH SCH ×4 (11:53→23:30)
[2019-10-14] MEDS ORDERED: *HR* FentaNYL (PF) 100 MCG/2 ML VIAL ONE (11:54)
[2019-10-14] MEDS ORDERED: *HR* Midazolam HCl 2 MG/2 ML VIAL ONE (11:55)
[2019-10-15] MEDS: Albuterol 2.5 MG/3 ML NEBULIZER IH SCH ×3 (03:52→11:24)
[2019-10-15] MEDS: 0.9 % Sodium Chloride 1,000 ML IVC SCH (06:26)
[2019-10-15 07:03] LABS: Basophils % 0.5 %; Eosinophils # 0.2 K/mcL (0.0-0.6); Eosinophils % 1.9 %; Hematocrit 42.9 % (35.3-44.9); Hemoglobin 14.1 g/dL (11.5-15.4); Immature Granulocytes % 0.2 % (0-4); Lymphocytes # 2.9 K/mcL (0.6-4.6); Lymphocytes % 32.7 %; Mean Corpuscular HGB Conc 32.9 g/dL (31.6-35.5); Mean Corpuscular Hemoglobin 30.2 pg (28.0-33.3); Mean Corpuscular Volume 91.9 fL (83.0-100.0); Mean Platelet Volume 11.1 fL (9.4-12.4); Monocytes # 0.6 K/mcL (0.0-1.3); Monocytes % 6.6 %; Neutrophils # 5.1 K/mcL (1.6-8.9); Platelet Count 230 K/mcL (140-400); Red Blood Count 4.67 M/mcL (3.82-4.97); Segmented Neutrophils % 58.1 %; White Blood Count 8.8 K/mcL (4.3-11.1)
[2019-10-15 07:21] VITALS: BP 109/70
[2019-10-15 07:23] LABS: BUN/Creatinine Ratio 10 (6-26); Blood Urea Nitrogen 7 mg/dL (6-20); Carbon Dioxide 24 mEq/L (23-29); Chloride 107 mEq/L (98-107); Glucose 116 mg/dL (70-105); Osmolality,Calculated 289 (280-300); Potassium 3.5 mEq/L (3.5-5.1); Sodium 140 mEq/L (136-145); eGFR For African Americans > 60 (> 60); eGFR For Non-African Americans > 60 (> 60)
[2019-10-15] MEDS: Gabapentin 100 MG CAPSULE PO SCH ×2 (09:38→13:09)
[2019-10-15] MEDS: Loratadine 10 MG TABLET PO SCH (09:38)
[2019-10-15] MEDS: Aspirin Enteric Coated 81 MG Tablet PO SCH (09:38)
[2019-10-15] MEDS: ALPRAZolam 0.5 MG TABLET PO SCH (12:28)
== END 2019-10-15 13:30 | disposition home or self-care (01) | DRG 286 ==
LOC: EMEROOARM 11:49 → 3BNU 11:49
PROVIDERS: ADMIT Internal Medicine; ATTEND Internal Medicine

== ENCOUNTER 2020-04-13 18:27 | Inpatient (IN) ==
[2020-04-13] MEDS ORDERED: *HR* Promethazine 25 MG/ML VIAL IVP PRN ×2 (20:33→23:08)
[2020-04-13] MEDS ORDERED: Naloxone 0.4 MG/ML INJ IVP PRN (20:33)
[2020-04-13] MEDS ORDERED: *HR* HYDROmorphone (PF) 1 MG/ML SYRINGE IVP PRN ×2 (20:37→23:08)
[2020-04-13] MEDS ORDERED: 0.9 % Sodium Chloride 1,000 ML IVC SCH (20:45)
[2020-04-13 21:19] LABS: Hematocrit 52.5 % (35.3-44.9); Hemoglobin 17.5 g/dL (11.5-15.4); Mean Corpuscular HGB Conc 33.3 g/dL (31.6-35.5); Mean Corpuscular Hemoglobin 29.9 pg (28.0-33.3); Mean Corpuscular Volume 89.6 fL (83.0-100.0); Mean Platelet Volume 10.7 fL (9.4-12.4); Platelet Count 215 K/mcL (140-400); Red Blood Count 5.86 M/mcL (3.82-4.97); Red Cell Distribution Width 12.3 % (11.5-14.5); Segmented Neutrophils % 80.2 %; White Blood Count 3.7 K/mcL (4.3-11.1)
[2020-04-13 21:20] LABS: Basophils % 0.3 %; Immature Granulocytes % 0.3 % (0-4); Lymphocytes # 0.4 K/mcL (0.6-4.6); Lymphocytes % 11.5 %; Monocytes # 0.3 K/mcL (0.0-1.3); Monocytes % 7.7 %
[2020-04-13 21:37] LABS: Magnesium 1.6 mg/dL (1.6-2.6); Phosphorous 1.3 mg/dL (2.7-4.5)
[2020-04-13 21:38] LABS: BUN/Creatinine Ratio 15 (6-26); Blood Urea Nitrogen 10 mg/dL (6-20); Calcium 8.7 mg/dL (8.6-10.3); Carbon Dioxide 16 mEq/L (23-29); Chloride 109 mEq/L (98-107); Glucose 137 mg/dL (70-105); Osmolality,Calculated 285 (280-300); Potassium 3.5 mEq/L (3.5-5.1); Sodium 137 mEq/L (136-145); eGFR For African Americans > 60 (> 60); eGFR For Non-African Americans > 60 (> 60)
[2020-04-13] MEDS ORDERED: Ertapenem 1,000 MG in 0.9 % Sodium Chloride Mini Bag 100 ML IVPB SCH (22:00)
[2020-04-13] MEDS ORDERED: Ondansetron 4 MG/2 ML VIAL ONE (22:10)
[2020-04-13] MEDS ORDERED: Dexamethasone 4 MG/ML VIAL ONE (22:10)
[2020-04-13] MEDS ORDERED: Lidocaine -MPF 2% 2 ML VIAL ONE (22:10)
[2020-04-13] MEDS ORDERED: *HR* FentaNYL (PF) 100 MCG/2 ML VIAL ONE (22:10)
[2020-04-13] MEDS ORDERED: *HR* Midazolam HCl 2 MG/2 ML VIAL ONE (22:10)
[2020-04-13] MEDS ORDERED: *HR* Succinylcholine 200 MG/10 ML VIAL IVP ONE (22:10)
[2020-04-13] MEDS ORDERED: *HR* Rocuronium Bromide 50 MG/5 ML VIAL ONE (22:10)
[2020-04-13] MEDS ORDERED: *HR* Propofol 200 MG/20 ML VIAL IVP ONE (22:11)
[2020-04-13] MEDS ORDERED: *HR* PHENYLEPHRINE 1,000 MCG/10 ML SYRINGE IVP ONE (22:22)
[2020-04-13] MEDS ORDERED: Acetaminophen IV 1,000 MG/100 ML INFUS..BTL ONE (22:38)
[2020-04-13] MEDS ORDERED: *HR* Labetalol 20 MG/4 ML SYRINGE IVP PRN (23:08)
[2020-04-13] MEDS ORDERED: Ondansetron 4 MG/2 ML VIAL IVP PRN (23:08)
[2020-04-14] MEDS ORDERED: MetroNIDAZOLE 500 MG/100 ML 500 MG/100 ML BAG IVPB SCH
[2020-04-14] MEDS ORDERED: *HR* PHENYLEPHRINE 1,000 MCG/10 ML SYRINGE IVP ONE ×2 (00:30→00:58)
[2020-04-14] MEDS ORDERED: Ringers Solution, Lactated 1,000 ML ONE (01:48)
[2020-04-14] MEDS ORDERED: *HR* LORazepam 2 MG/ML VIAL IVP PRN (02:23)
[2020-04-14] MEDS ORDERED: Ondansetron 4 MG/2 ML VIAL IVP PRN (02:23)
[2020-04-14] MEDS ORDERED: Naloxone 0.4 MG/ML INJ IVP PRN (02:23)
[2020-04-14] MEDS ORDERED: Metoclopramide 10 MG/2 ML VIAL IVP PRN (02:23)
[2020-04-14] MEDS ORDERED: 0.9 % Sodium Chloride 1,000 ML IVC SCH ×3 (02:23→10:07)
[2020-04-14] MEDS: Morphine PCA 30 MG/ 30 ML 30 ML PCA.VIAL IVC PRN ×3 (04:39→22:40)
[2020-04-14] MEDS: Pantoprazole 40 MG VIAL IVP SCH ×2 (05:16→18:15)
[2020-04-14 05:43] LABS: INR 1.5
[2020-04-14 05:45] LABS: Hematocrit 48.4 % (35.3-44.9); Hemoglobin 16.4 g/dL (11.5-15.4); Mean Corpuscular HGB Conc 33.9 g/dL (31.6-35.5); Mean Corpuscular Hemoglobin 30.4 pg (28.0-33.3); Mean Corpuscular Volume 89.6 fL (83.0-100.0); Platelet Count 189 K/mcL (140-400); Red Cell Distribution Width 12.6 % (11.5-14.5)
[2020-04-14 06:02] LABS: BUN/Creatinine Ratio 17 (6-26); Blood Urea Nitrogen 10 mg/dL (6-20); Calcium 8.3 mg/dL (8.6-10.3); Carbon Dioxide 18 mEq/L (23-29); Chloride 109 mEq/L (98-107); Glucose 100 mg/dL (70-105); Osmolality,Calculated 279 (280-300); Potassium 3.9 mEq/L (3.5-5.1); Sodium 135 mEq/L (136-145); eGFR For African Americans > 60 (> 60); eGFR For Non-African Americans > 60 (> 60)
[2020-04-14] MEDS: Acetaminophen IV 1,000 MG/100 ML INFUS..BTL IVPB SCH ×4 (06:02→23:08)
[2020-04-14] MEDS: *HR* Heparin 5,000 UNIT/ML VIAL SQ SCH ×2 (06:03→18:14)
[2020-04-14 06:08] LABS: Lymphocytes # 3.4 K/mcL (0.6-4.6); Monocytes # 0.2 K/mcL (0.0-1.3); Reactive Lymphocytes Present (Not Present)
[2020-04-14 06:09] LABS: Platelet Estimate Normal (Normal)
[2020-04-14] MEDS: MetroNIDAZOLE 500 MG/100 ML 500 MG/100 ML BAG IVPB SCH ×3 (06:33→18:16)
[2020-04-14] MEDS: Chloraseptic Spray 177 ML BOTTLE MM PRN ×2 (09:56→16:32)
[2020-04-14] MEDS: 0.9 % Sodium Chloride 1,000 ML IVC SCH ×3 (11:14→21:53)
[2020-04-15] MEDS: MetroNIDAZOLE 500 MG/100 ML 500 MG/100 ML BAG IVPB SCH ×3 (01:49→17:36)
[2020-04-15 02:42] LABS: Basophils # 0.1 K/mcL (0.0-0.2); Basophils % 0.4 %; Eosinophils % 0.3 %; Hematocrit 42.8 % (35.3-44.9); Immature Granulocytes % 3.9 % (0-4); Lymphocytes # 0.7 K/mcL (0.6-4.6); Lymphocytes % 5.5 %; Mean Corpuscular HGB Conc 33.2 g/dL (31.6-35.5); Mean Corpuscular Hemoglobin 30.4 pg (28.0-33.3); Mean Corpuscular Volume 91.6 fL (83.0-100.0); Mean Platelet Volume 11.2 fL (9.4-12.4); Monocytes # 0.4 K/mcL (0.0-1.3); Monocytes % 3.2 %; Platelet Count 145 K/mcL (140-400); Red Blood Count 4.67 M/mcL (3.82-4.97); Segmented Neutrophils % 86.7 %; White Blood Count 12.6 K/mcL (4.3-11.1)
[2020-04-15 02:44] LABS: Hemoglobin 14.2 g/dL (11.5-15.4); Neutrophils # 10.9 K/mcL (1.6-8.9)
[2020-04-15 02:56] LABS: Platelet Estimate Slight Decrease (Normal); Reactive Lymphocytes Present (Not Present)
[2020-04-15 03:01] LABS: BUN/Creatinine Ratio 17 (6-26); Blood Urea Nitrogen 10 mg/dL (6-20); Calcium 7.9 mg/dL (8.6-10.3); Carbon Dioxide 19 mEq/L (23-29); Chloride 110 mEq/L (98-107); Glucose 107 mg/dL (70-105); Magnesium 2.1 mg/dL (1.6-2.6); Osmolality,Calculated 286 (280-300); Phosphorous 2.5 mg/dL (2.7-4.5); Potassium 3.9 mEq/L (3.5-5.1); Sodium 138 mEq/L (136-145); eGFR For African Americans > 60 (> 60); eGFR For Non-African Americans > 60 (> 60)
[2020-04-15] MEDS: Acetaminophen IV 1,000 MG/100 ML INFUS..BTL IVPB SCH ×3 (05:12→17:38)
[2020-04-15] MEDS: Pantoprazole 40 MG VIAL IVP SCH ×2 (05:13→17:37)
[2020-04-15] MEDS: 0.9 % Sodium Chloride 1,000 ML IVC SCH ×4 (05:13→18:10)
[2020-04-15] MEDS: *HR* Heparin 5,000 UNIT/ML VIAL SQ SCH ×2 (05:13→17:40)
[2020-04-15] MEDS: Albuterol 2.5 MG/3 ML NEBULIZER IH PRN ×2 (10:28→17:01)
[2020-04-15] MEDS: Morphine PCA 30 MG/ 30 ML 30 ML PCA.VIAL IVC PRN (13:37)
[2020-04-15] MEDS ORDERED: 0.9 % Sodium Chloride 1,000 ML IVC SCH (17:26)
[2020-04-15] MEDS ORDERED: Furosemide 20 MG/2 ML VIAL IVP ONE (17:31)
[2020-04-15] MEDS: Albuterol 2.5 MG/3 ML NEBULIZER IH SCH ×2 (17:47→21:30)
[2020-04-16] MEDS ORDERED: Dextrose Gel 15 GM/37.5 ML TUBE PO PRN ×2 (00:10)
[2020-04-16] MEDS ORDERED: D5% in Water 1,000 ML IVC PRN (00:10)
[2020-04-16] MEDS: Acetaminophen IV 1,000 MG/100 ML INFUS..BTL IVPB SCH ×3 (00:16→13:01)
[2020-04-16] MEDS: *HR* Dextrose 50 % in Water (Vial) 50 ML VIAL IVP PRN ×2 (00:38→03:15)
[2020-04-16 02:02] LABS: Basophils % 0.1 %; Mean Corpuscular Volume 92.6 fL (83.0-100.0)
[2020-04-16 02:05] LABS: Eosinophils # 0.2 K/mcL (0.0-0.6); Eosinophils % 1.7 %; Hematocrit 38.9 % (35.3-44.9); Hemoglobin 12.4 g/dL (11.5-15.4); Immature Granulocytes % 2.2 % (0-4); Immature Platelets 11.1 % (1.1-6.1); Lymphocytes # 0.9 K/mcL (0.6-4.6); Lymphocytes % 10.2 %; Mean Corpuscular HGB Conc 31.9 g/dL (31.6-35.5); Mean Corpuscular Hemoglobin 29.5 pg (28.0-33.3); Mean Platelet Volume 11.6 fL (9.4-12.4); Monocytes # 0.2 K/mcL (0.0-1.3); Monocytes % 1.8 %; Neutrophils # 7.6 K/mcL (1.6-8.9); Platelet Count 110 K/mcL (140-400); Red Cell Distribution Width 13.2 % (11.5-14.5)
[2020-04-16 02:21] LABS: BUN/Creatinine Ratio 14 (6-26); Blood Urea Nitrogen 7 mg/dL (6-20); Calcium 7.6 mg/dL (8.6-10.3); Carbon Dioxide 21 mEq/L (23-29); Chloride 108 mEq/L (98-107); Glucose 119 mg/dL (70-105); Osmolality,Calculated 287 (280-300); Potassium 3.5 mEq/L (3.5-5.1); Sodium 139 mEq/L (136-145); eGFR For African Americans > 60 (> 60); eGFR For Non-African Americans > 60 (> 60)
[2020-04-16] MEDS: MetroNIDAZOLE 500 MG/100 ML 500 MG/100 ML BAG IVPB SCH ×2 (02:37→08:52)
[2020-04-16] MEDS: Albuterol 2.5 MG/3 ML NEBULIZER IH SCH ×4 (03:54→22:08)
[2020-04-16] MEDS ORDERED: *HR* Metoprolol 5 MG/5 ML VIAL IVP ONE (04:58)
[2020-04-16] MEDS: 0.9 % Sodium Chloride 1,000 ML IVC SCH (05:35)
[2020-04-16] MEDS: Pantoprazole 40 MG VIAL IVP SCH ×2 (05:36→18:15)
[2020-04-16] MEDS: *HR* Heparin 5,000 UNIT/ML VIAL SQ SCH ×2 (05:37→18:14)
[2020-04-16] MEDS ORDERED: Furosemide 20 MG/2 ML VIAL IVP ONE ×2 (05:51→12:00)
[2020-04-16] MEDS ORDERED: Potassium Phosphate 44 MEQ in 0.9 % Sodium Chloride 250 ML IVPB ONE (07:41)
[2020-04-16] MEDS: Morphine PCA 30 MG/ 30 ML 30 ML PCA.VIAL IVC PRN ×2 (11:39→22:39)
[2020-04-16] MEDS: predniSONE 20 MG TABLET PO SCH (13:01)
[2020-04-16] MEDS: metroNIDAZOLE 500 MG TABLET PO SCH ×2 (18:14→21:35)
[2020-04-16] MEDS: Acetaminophen 325 MG TABLET PO PRN (21:34)
[2020-04-17] MEDS: Albuterol 2.5 MG/3 ML NEBULIZER IH SCH ×4 (03:30→21:27)
[2020-04-17] MEDS: Acetaminophen 325 MG TABLET PO PRN (03:56)
[2020-04-17 04:59] LABS: Hematocrit 44.6 % (35.3-44.9); Mean Corpuscular HGB Conc 33.2 g/dL (31.6-35.5); Mean Corpuscular Volume 90.3 fL (83.0-100.0); Mean Platelet Volume 11.3 fL (9.4-12.4); Platelet Count 207 K/mcL (140-400); Red Blood Count 4.94 M/mcL (3.82-4.97); Red Cell Distribution Width 13.2 % (11.5-14.5); White Blood Count 12.5 K/mcL (4.3-11.1)
[2020-04-17 05:00] LABS: Hemoglobin 14.8 g/dL (11.5-15.4)
[2020-04-17] MEDS: Pantoprazole 40 MG VIAL IVP SCH ×2 (05:25→18:42)
[2020-04-17] MEDS: *HR* Heparin 5,000 UNIT/ML VIAL SQ SCH ×2 (05:25→18:41)
[2020-04-17 05:31] LABS: BUN/Creatinine Ratio 18 (6-26); Blood Urea Nitrogen 9 mg/dL (6-20); Calcium 8.6 mg/dL (8.6-10.3); Carbon Dioxide 23 mEq/L (23-29); Chloride 103 mEq/L (98-107); Glucose 88 mg/dL (70-105); Magnesium 2.1 mg/dL (1.6-2.6); Osmolality,Calculated 284 (280-300); Potassium 3.1 mEq/L (3.5-5.1); Sodium 138 mEq/L (136-145); eGFR For African Americans > 60 (> 60); eGFR For Non-African Americans > 60 (> 60)
[2020-04-17] MEDS: metroNIDAZOLE 500 MG TABLET PO SCH ×3 (08:52→20:10)
[2020-04-17] MEDS: Morphine PCA 30 MG/ 30 ML 30 ML PCA.VIAL IVC PRN ×2 (08:53→16:32)
[2020-04-17] MEDS: predniSONE 20 MG TABLET PO SCH (08:53)
[2020-04-17] MEDS: 0.9 % Sodium Chloride 1,000 ML IVC SCH ×2 (13:39→23:29)
[2020-04-18] MEDS: Morphine PCA 30 MG/ 30 ML 30 ML PCA.VIAL IVC PRN
[2020-04-18] MEDS: Albuterol 2.5 MG/3 ML NEBULIZER IH SCH ×4 (03:57→21:38)
[2020-04-18] MEDS: *HR* Heparin 5,000 UNIT/ML VIAL SQ SCH ×2 (05:20→17:23)
[2020-04-18] MEDS: Pantoprazole 40 MG VIAL IVP SCH ×2 (05:21→17:23)
[2020-04-18] MEDS: predniSONE 20 MG TABLET PO SCH (08:54)
[2020-04-18] MEDS: metroNIDAZOLE 500 MG TABLET PO SCH ×3 (08:54→22:54)
[2020-04-18 08:58] LABS: Basophils % 0.3 %; Eosinophils # 0.3 K/mcL (0.0-0.6); Eosinophils % 2.7 %; Hematocrit 40.7 % (35.3-44.9); Hemoglobin 13.5 g/dL (11.5-15.4); Immature Granulocytes % 2.1 % (0-4); Lymphocytes # 2.6 K/mcL (0.6-4.6); Lymphocytes % 21.7 %; Mean Corpuscular HGB Conc 33.2 g/dL (31.6-35.5); Mean Corpuscular Hemoglobin 29.5 pg (28.0-33.3); Mean Corpuscular Volume 88.9 fL (83.0-100.0); Mean Platelet Volume 10.8 fL (9.4-12.4); Monocytes # 1.1 K/mcL (0.0-1.3); Monocytes % 9.3 %; Neutrophils # 7.5 K/mcL (1.6-8.9); Platelet Count 240 K/mcL (140-400); Red Blood Count 4.58 M/mcL (3.82-4.97); Red Cell Distribution Width 13.4 % (11.5-14.5); Segmented Neutrophils % 63.9 %; White Blood Count 11.8 K/mcL (4.3-11.1)
[2020-04-18 09:19] LABS: BUN/Creatinine Ratio 25 (6-26); Blood Urea Nitrogen 13 mg/dL (6-20); Calcium 8.7 mg/dL (8.6-10.3); Carbon Dioxide 25 mEq/L (23-29); Chloride 102 mEq/L (98-107); Glucose 92 mg/dL (70-105); Osmolality,Calculated 284 (280-300); Potassium 2.9 mEq/L (3.5-5.1); Sodium 137 mEq/L (136-145); eGFR For African Americans > 60 (> 60); eGFR For Non-African Americans > 60 (> 60)
[2020-04-19] MEDS: Albuterol 2.5 MG/3 ML NEBULIZER IH SCH ×4 (03:34→22:02)
[2020-04-19] MEDS: Pantoprazole 40 MG VIAL IVP SCH (06:07)
[2020-04-19] MEDS: *HR* Heparin 5,000 UNIT/ML VIAL SQ SCH ×2 (06:07→16:25)
[2020-04-19] MEDS: predniSONE 20 MG TABLET PO SCH (08:46)
[2020-04-19] MEDS: metroNIDAZOLE 500 MG TABLET PO SCH ×3 (08:46→19:36)
[2020-04-19 09:34] LABS: Hematocrit 42.6 % (35.3-44.9); Hemoglobin 13.7 g/dL (11.5-15.4); Mean Corpuscular HGB Conc 32.2 g/dL (31.6-35.5); Mean Corpuscular Hemoglobin 29.1 pg (28.0-33.3); Mean Corpuscular Volume 90.6 fL (83.0-100.0); Mean Platelet Volume 10.7 fL (9.4-12.4); Platelet Count 284 K/mcL (140-400); Red Cell Distribution Width 13.6 % (11.5-14.5); White Blood Count 12.5 K/mcL (4.3-11.1)
[2020-04-19 11:36] LABS: Eosinophils # 0.5 K/mcL (0.0-0.6); Lymphocytes # 3.3 K/mcL (0.6-4.6); Monocytes # 1.3 K/mcL (0.0-1.3); Neutrophils # 7.5 K/mcL (1.6-8.9); Platelet Estimate Normal (Normal)
[2020-04-19] MEDS ORDERED: Acetaminophen 325 MG TABLET PO PRN ×2 (11:52→11:53)
[2020-04-19] MEDS ORDERED: ALPRAZolam 1 MG TABLET PO PRN (11:54)
[2020-04-19 12:49] LABS: BUN/Creatinine Ratio 24 (6-26); Blood Urea Nitrogen 11 mg/dL (6-20); Calcium 8.4 mg/dL (8.6-10.3); Carbon Dioxide 22 mEq/L (23-29); Chloride 101 mEq/L (98-107); Glucose 172 mg/dL (70-105); Magnesium 2.5 mg/dL (1.6-2.6); Osmolality,Calculated 281 (280-300); Potassium 3.1 mEq/L (3.5-5.1); Sodium 134 mEq/L (136-145); eGFR For African Americans > 60 (> 60); eGFR For Non-African Americans > 60 (> 60)
[2020-04-19] MEDS: Gabapentin 400 MG CAPSULE PO SCH ×3 (13:13→19:37)
[2020-04-20] MEDS: Albuterol 2.5 MG/3 ML NEBULIZER IH SCH ×2 (03:10→10:54)
[2020-04-20] MEDS: *HR* Heparin 5,000 UNIT/ML VIAL SQ SCH (05:21)
[2020-04-20 06:47] LABS: Hematocrit 39.7 % (35.3-44.9); Hemoglobin 13.7 g/dL (11.5-15.4); Mean Corpuscular HGB Conc 34.5 g/dL (31.6-35.5); Mean Corpuscular Hemoglobin 30.3 pg (28.0-33.3); Mean Corpuscular Volume 87.8 fL (83.0-100.0); Mean Platelet Volume 10.2 fL (9.4-12.4); Platelet Count 285 K/mcL (140-400); Red Blood Count 4.52 M/mcL (3.82-4.97); Red Cell Distribution Width 13.6 % (11.5-14.5); White Blood Count 16.7 K/mcL (4.3-11.1)
[2020-04-20 06:58] LABS: BUN/Creatinine Ratio 22 (6-26); Blood Urea Nitrogen 12 mg/dL (6-20); Calcium 8.6 mg/dL (8.6-10.3); Carbon Dioxide 22 mEq/L (23-29); Chloride 103 mEq/L (98-107); Glucose 114 mg/dL (70-105); Osmolality,Calculated 279 (280-300); Potassium 3.5 mEq/L (3.5-5.1); Sodium 134 mEq/L (136-145); eGFR For African Americans > 60 (> 60); eGFR For Non-African Americans > 60 (> 60)
[2020-04-20 07:21] LABS: Lymphocytes # 5.3 K/mcL (0.6-4.6); Neutrophils # 10.4 K/mcL (1.6-8.9); Platelet Estimate Normal (Normal); Reactive Lymphocytes Present (Not Present)
[2020-04-20 08:07] VITALS: BP 146/82
[2020-04-20] MEDS: Gabapentin 400 MG CAPSULE PO SCH (11:01)
[2020-04-20] MEDS: metroNIDAZOLE 500 MG TABLET PO SCH (11:01)
[2020-04-20] MEDS: predniSONE 20 MG TABLET PO SCH (11:03)
== END 2020-04-20 12:25 | disposition home health service (06) | DRG 853 ==
LOC: 3ANU → SUATTDRO 04-14 11:18
PROVIDERS: ADMIT Pharmacist; ATTEND Internal Medicine
PROC: GENAPPY (ICD-10-PCS; 2020-04-13 23:00)

== ENCOUNTER 2020-07-10 09:25 | Inpatient (IN) ==
[2020-07-10] MEDS ORDERED: Acetaminophen IV 1,000 MG/100 ML INFUS..BTL IVPB ONE (09:44)
[2020-07-10] MEDS ORDERED: Ondansetron 4 MG/2 ML VIAL IVP ONE (09:44)
[2020-07-10] MEDS ORDERED: *HR* Promethazine 25 MG/ML VIAL IVP PRN (09:44)
[2020-07-10] MEDS ORDERED: *HR* Meperidine 25 MG/ML SYRINGE IVP PRN (09:44)
[2020-07-10] MEDS ORDERED: Ringers Solution, Lactated 1,000 ML IVC SCH (09:45)
[2020-07-10] MEDS ORDERED: cefOXitin 2,000 MG in Water for inj. (sterile) 20 ML IVP ONE (10:24)
[2020-07-10] MEDS ORDERED: *HR* PHENYLEPHRINE 1,000 MCG/10 ML SYRINGE IVP ONE (10:32)
[2020-07-10] MEDS ORDERED: Lidocaine -MPF 4% 5 ML AMPUL ONE (10:49)
[2020-07-10] MEDS ORDERED: *HR* FentaNYL (PF) 100 MCG/2 ML VIAL ONE (10:52)
[2020-07-10] MEDS ORDERED: *HR* Midazolam HCl 2 MG/2 ML VIAL ONE (10:52)
[2020-07-10] MEDS ORDERED: Dexamethasone 4 MG/ML VIAL ONE (10:53)
[2020-07-10] MEDS ORDERED: Ondansetron 4 MG/2 ML VIAL ONE (10:53)
[2020-07-10] MEDS ORDERED: Lidocaine -MPF 2% 2 ML VIAL ONE (10:53)
[2020-07-10] MEDS ORDERED: *HR* Rocuronium Bromide 50 MG/5 ML VIAL ONE ×2 (10:54→14:27)
[2020-07-10] MEDS ORDERED: Ketorolac 30 MG/ML VIAL ONE (11:16)
[2020-07-10] MEDS ORDERED: *HR* HYDROMORPHONE 2 MG/ML VIAL ONE (12:36)
[2020-07-10] MEDS ORDERED: *HR* Labetalol 20 MG/4 ML SYRINGE IVP ONE (13:04)
[2020-07-10] MEDS: *HR* HYDROmorphone PF 0.5 MG/0.5 ML SYRINGE IVP PRN ×2 (15:27→15:36)
[2020-07-10] MEDS: *HR* HYDROmorphone (PF) 1 MG/ML SYRINGE IVP PRN ×2 (16:18→16:28)
[2020-07-10] MEDS ORDERED: Naloxone 0.4 MG/ML INJ IVP PRN (16:48)
[2020-07-10] MEDS ORDERED: Ketorolac 15 MG/ML VIAL IVP SCH (18:00)
[2020-07-10] MEDS: Ringers Solution, Lactated 1,000 ML IVC SCH (18:33)
[2020-07-10] MEDS: *HR* Heparin 5,000 UNIT/ML VIAL SQ SCH (18:33)
[2020-07-10] MEDS: Ketorolac 15 MG/ML VIAL IVP SCH (21:25)
[2020-07-10] MEDS ORDERED: Mag Hydrox/Al Hydrox/Simeth 30 ML UDC PO PRN (23:01)
[2020-07-11] MEDS: Acetaminophen IV 1,000 MG/100 ML INFUS..BTL IVPB SCH ×3 (00:21→11:49)
[2020-07-11 03:15] LABS: Basophils # 0.1 K/mcL (0.0-0.2); Basophils % 0.3 %; Eosinophils % 0.1 %; Hematocrit 42.3 % (35.3-44.9); Hemoglobin 13.5 g/dL (11.5-15.4); Immature Granulocytes % 0.5 % (0-4); Lymphocytes # 1.5 K/mcL (0.6-4.6); Lymphocytes % 7.6 %; Mean Corpuscular HGB Conc 31.9 g/dL (31.6-35.5); Mean Corpuscular Volume 90.8 fL (83.0-100.0); Mean Platelet Volume 10.8 fL (9.4-12.4); Monocytes # 1.1 K/mcL (0.0-1.3); Monocytes % 5.9 %; Neutrophils # 16.6 K/mcL (1.6-8.9); Platelet Count 328 K/mcL (140-400); Red Blood Count 4.66 M/mcL (3.82-4.97); Red Cell Distribution Width 13.4 % (11.5-14.5); Segmented Neutrophils % 85.6 %; White Blood Count 19.4 K/mcL (4.3-11.1)
[2020-07-11 03:39] LABS: BUN/Creatinine Ratio 13 (6-26); Blood Urea Nitrogen 7 mg/dL (6-20); Calcium 9.4 mg/dL (8.6-10.3); Carbon Dioxide 19 mEq/L (23-29); Chloride 102 mEq/L (98-107); Glucose 177 mg/dL (70-105); Osmolality,Calculated 278 (280-300); Potassium 3.8 mEq/L (3.5-5.1); Sodium 133 mEq/L (136-145); eGFR For African Americans > 60 (> 60); eGFR For Non-African Americans > 60 (> 60)
[2020-07-11] MEDS: Ketorolac 15 MG/ML VIAL IVP SCH ×2 (04:23→11:49)
[2020-07-11] MEDS: *HR* Heparin 5,000 UNIT/ML VIAL SQ SCH (06:09)
[2020-07-11] MEDS: Ringers Solution, Lactated 1,000 ML IVC SCH (09:23)
[2020-07-11] MEDS ORDERED: ALPRAZolam 1 MG TABLET PO PRN (09:51)
[2020-07-11 11:24] VITALS: BP 99/62
[2020-07-11] MEDS ORDERED: Nicotine 14 MG PATCH.TD24 TD SCH (11:30)
[2020-07-11] MEDS ORDERED: Gabapentin 400 MG CAPSULE PO SCH (13:00)
[2020-07-11] MEDS ORDERED: Aspirin Enteric Coated 81 MG Tablet PO SCH (21:00)
== END 2020-07-11 16:23 | disposition home or self-care (01) | DRG 331 ==
LOC: SAMDAY 09:25 → 3ANU 16:49
PROVIDERS: ADMIT Surgery; ATTEND Surgery